=== PATIENT | female | born 1975 | race African-American/Black ===

== ENCOUNTER 2016-07-21 19:20 | Inpatient (IN) | payer OTHER ==
[~2016-07-21 19:20] MED LIST: NEOSTIGMINE 3 MG/3 ML SYR IV ONE; NORMOSOL R INJ 2,000 ML IV ONE; ONDANSETRON HCL 4 MG/2 ML VIAL IV PUSH ONE; PHENYLEPH/NS 1000 MCG/10 ML SYR IV ONE; PROPOFOL 200 MG/20 ML AMP IV ONE; SODIUM CHLORID 0.9% 500 ML INJ 500 ML IV ONE; TRAM50 PO; Z.0.NO CURRENT MEDS; ePHEDrine/NS 25 MG/5 ML SYR IV ONE
[2016-07-21 19:25] VITALS: O2SAT 100
[2016-07-21] MEDS ORDERED: MORPHINE SULFATE 8 MG/ML INJ ONE (19:26)
[2016-07-21] MEDS ORDERED: ONDANSETRON HCL 4 MG/2 ML VIAL ONE (19:26)
[2016-07-21] MEDS ORDERED: IOHEXOL 350 MG/ML 10 ML VIAL (for RAD DIAG) IV ONE (19:38)
[2016-07-21] MEDS ORDERED: SOD PHOSPHATE/SOD BIPHOSPHATE (ADULT) ENEMA 133ML PR ONE (19:45)
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
[2016-07-21] MEDS ORDERED: ceFAZolin INJ 1,000 MG VIAL IV ONE (20:13)
[2016-07-21 20:21] LABS: BICARBONATE 23.6 MEQ/L (21.0-32.0); POTASSIUM 3.7 MEQ/L (3.5-5.1)
[2016-07-21 20:26] LABS: PROTHROMBIN TIME - PATIENT 10.9 SEC (9.8-11.6)
[2016-07-21 20:31] LABS: APTT (PATIENT) 20.1 SEC (24.3-30.1)
[2016-07-21 20:39] LABS: AUTOMATED NEUTROPHIL # 16.6 TH/MM3 (1.8-7.7); BASOPHIL % 0.2 % (0.0-2.0); EOSINOPHIL % 0.1 % (0.0-4.0); HEMATOCRIT 28.1 % (35.0-46.0); HEMO FLAGS DIFF FINAL; LYMPHOCYTE # 0.6 TH/MM3 (1.0-4.8); MEAN CELL VOLUME 83.2 FL (80.0-100.0); MEAN CORPUSCULAR HEMOGLOBIN 29.6 PG (27.0-34.0); MEAN CORPUSCULAR HGB CONC 35.5 % (32.0-36.0); MONO % 5.5 % (0.0-8.0); NEUT % 91.2 % (16.0-70.0); PLATELET COUNT 253 TH/MM3 (150-450); RED BLOOD COUNT 3.37 MIL/MM3 (4.00-5.30); RED CELL DISTRIBUTION WIDTH 13.6 % (11.6-17.2); WHITE BLOOD COUNT 18.3 TH/MM3 (4.0-11.0)
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
[2016-07-21 20:56] LABS: APTT (PATIENT) 27.1 SEC (24.3-30.1); INTERNATIONAL NORMALIZED RATIO 1.1 RATIO; PROTHROMBIN TIME - PATIENT 11.7 SEC (9.8-11.6)
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
[2016-07-21 21:00] LABS: BLOOD GAS BASE EXCESS -3.4 mmol/L (-2-2); BLOOD GAS CARBOXYHEMOGLOBIN 1.5 % (0-4); BLOOD GAS HCO3 21 mmol/L (22-26); BLOOD GAS METHEMOGLOBIN 0.9 % (0-2); BLOOD GAS O2 HGB SATURATION 98 % (90-100); BLOOD GAS OXYGEN CONTENT 20.9 Vol % (12.0-20.0); BLOOD GAS PCO2 36 mmHg (38-42); BLOOD GAS PO2 261 mmHg (61-120); BLOOD GAS TOTAL HGB 14.8 G/DL (12.0-16.0); CRITICAL VALUE NO; OXYGEN DEVICE VENTILATOR; TEMP CORR TO 98.6
[2016-07-21 21:01] LABS: DRAW SITE ART LINE; FIO2 70 %; STAT YES; VENT SETTINGS PER ANESTHESIA
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
[2016-07-21 21:05] LABS: CALCIUM-PROTEIN CORRECTED 7.5 MG/DL (8.5-10.1)
[2016-07-21 21:06] LABS: BICARBONATE 24.5 MEQ/L (21.0-32.0); POTASSIUM 3.5 MEQ/L (3.5-5.1); TOTAL BILIRUBIN ADULT 0.5 MG/DL (0.2-1.0)
[2016-07-21 21:14] LABS: CALCIUM-PROTEIN CORRECTED 7.3 MG/DL (8.5-10.1)
[2016-07-21] MEDS ORDERED: DO NOT ADM ANY ANTICOAGULANT DRUGS XX PRN (21:30)
[2016-07-21] MEDS ORDERED: fentaNYL CITRATE 250 MCG/5 ML AMP ONE (21:36)
[2016-07-21] MEDS: LACTATED RINGER'S 1000 ML INJ 1,000 ML IV SCH (22:05)
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
[2016-07-21] MEDS ORDERED: MISCELLANEOUS NURSING INFORMATION XX SCH (22:15)
[2016-07-21] MEDS ORDERED: HYDROmorphone HCL PF 1 MG/ML VIAL IVP PRN (22:15)
[2016-07-21] MEDS ORDERED: MAGNESIUM HYDROXIDE SUSP 30 ML CUP PO PRN (22:15)
[2016-07-21] MEDS ORDERED: CHLORHEXIDINE GLUCONATE 2 % 1 PACK (2 CLOTHS) TOP PRN (22:15)
[2016-07-21] MEDS ORDERED: *morphine SULFATE 8 MG/ML PERIprocedure ONLY ONE (22:18)
[2016-07-21 23:53] VITALS: BP 135/76; PULSE 89; RESP 18; TEMP 96.8; O2SAT 98
[2016-07-22] MEDS: ONDANSETRON HCL 4 MG/2 ML VIAL IV PRN (01:24)
[2016-07-22] MEDS: CHLORHEXIDINE GLUCONATE 2 % 1 PACK (2 CLOTHS) TOP SCH ×2 (04:00→20:23)
[2016-07-22] MEDS: LACTATED RINGER'S 1000 ML INJ 1,000 ML IV SCH ×3 (04:26→20:23)
[2016-07-22 06:11] LABS: BICARBONATE 24.2 MEQ/L (21.0-32.0); CALCIUM-PROTEIN CORRECTED 7.5 MG/DL (8.5-10.1); POTASSIUM 4.3 MEQ/L (3.5-5.1); TOTAL BILIRUBIN ADULT 0.9 MG/DL (0.2-1.0)
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
[2016-07-22 08:00] VITALS: BP 132/82; PULSE 90; RESP 18; TEMP 97.4; O2SAT 98
[2016-07-22 08:31] LABS: AUTOMATED NEUTROPHIL # 14.8 TH/MM3 (1.8-7.7); BASOPHIL % 0.1 % (0.0-2.0); HEMATOCRIT 31.4 % (35.0-46.0); HEMO FLAGS DIFF FINAL; LYMPH % 2.3 % (9.0-44.0); LYMPHOCYTE # 0.4 TH/MM3 (1.0-4.8); MEAN CELL VOLUME 84.3 FL (80.0-100.0); MEAN CORPUSCULAR HGB CONC 34.3 % (32.0-36.0); MONO % 4.7 % (0.0-8.0); NEUT % 92.9 % (16.0-70.0); PLATELET COUNT 276 TH/MM3 (150-450); RED BLOOD COUNT 3.73 MIL/MM3 (4.00-5.30); RED CELL DISTRIBUTION WIDTH 13.5 % (11.6-17.2); WHITE BLOOD COUNT 15.9 TH/MM3 (4.0-11.0)
[2016-07-22] MEDS: DOCUSATE SODIUM 100 MG CAP PO SCH ×2 (08:32→20:21)
[2016-07-22] MEDS: BACITRACIN TOP OINT 15 GM TUBE TOP SCH ×2 (08:32→20:22)
[2016-07-22] MEDS: ACETAMINOPHEN 1000 MG/100 ML VIAL IV SCH ×3 (09:22→20:22)
[2016-07-22 10:25] VITALS: O2SAT 98
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
[2016-07-22 12:00] VITALS: BP 165/94; PULSE 87; RESP 20; TEMP 98; O2SAT 100
[2016-07-22 16:00] VITALS: BP 139/86; PULSE 76; RESP 20; TEMP 97.6; O2SAT 99
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
[2016-07-22 20:00] VITALS: BP 136/83; PULSE 91; RESP 16; TEMP 99; O2SAT 100
[2016-07-22] MEDS: FAMOTIDINE 20 MG TAB PO SCH (20:21)
[2016-07-23] VITALS: BP 131/82; PULSE 90; RESP 16; TEMP 98.2; O2SAT 98
[2016-07-23] MEDS: ACETAMINOPHEN 1000 MG/100 ML VIAL IV SCH (02:05)
[2016-07-23] MEDS: ONDANSETRON HCL 4 MG/2 ML VIAL IV PRN (04:40)
[2016-07-23] MEDS: LACTATED RINGER'S 1000 ML INJ 1,000 ML IV SCH ×2 (06:11→13:34)
[2016-07-23] MEDS ORDERED: WALKER WHEELS/F1 MIS (07:10)
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
[2016-07-23 08:00] VITALS: BP 141/93; PULSE 96; RESP 20; TEMP 98.3; O2SAT 97
[2016-07-23] MEDS: DOCUSATE SODIUM 100 MG CAP PO SCH ×2 (08:26→21:00)
[2016-07-23] MEDS: BACITRACIN TOP OINT 15 GM TUBE TOP SCH ×2 (08:27→21:21)
[2016-07-23 09:48] VITALS: O2SAT 95
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
[2016-07-23 12:00] VITALS: BP 149/89; PULSE 88; RESP 18; TEMP 99.1; O2SAT 97
[2016-07-23] MEDS: KETOROLAC TROMETHAMINE 30 MG/ML (IVP) VIAL IV PUSH PRN ×2 (13:33→21:17)
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
[2016-07-23 16:00] VITALS: BP 149/92; PULSE 85; RESP 20; TEMP 98.1; O2SAT 98
[2016-07-23 20:00] VITALS: BP 143/85; PULSE 83; RESP 16; TEMP 99.1; O2SAT 99
[2016-07-23] MEDS: FAMOTIDINE 20 MG TAB PO SCH (21:18)
[2016-07-24] VITALS: BP 156/93; PULSE 96; RESP 18; TEMP 98.9; O2SAT 96
[2016-07-24] MEDS: LACTATED RINGER'S 1000 ML INJ 1,000 ML IV SCH ×3 (00:49→20:00)
[2016-07-24] MEDS: CHLORHEXIDINE GLUCONATE 2 % 1 PACK (2 CLOTHS) TOP SCH ×2 (00:49→20:00)
[2016-07-24] MEDS: KETOROLAC TROMETHAMINE 30 MG/ML (IVP) VIAL IV PUSH PRN ×3 (06:21→19:56)
[2016-07-24 08:00] VITALS: BP 140/99; PULSE 96; RESP 20; TEMP 98; O2SAT 97
[2016-07-24] MEDS ORDERED: LACTULOSE SYRUP 20 GM/30 ML CUP PO ONE (09:00)
[2016-07-24] MEDS: DOCUSATE SODIUM 50 MG/SENNA 8.6 MG TAB PO SCH ×2 (09:45→20:00)
[2016-07-24] MEDS: BACITRACIN TOP OINT 15 GM TUBE TOP SCH (09:46)
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
[2016-07-24] MEDS ORDERED: NORC5TAB PO (11:06)
[2016-07-24 12:00] VITALS: BP 150/104; PULSE 83; RESP 20; TEMP 97.2; O2SAT 98
[2016-07-24] MEDS ORDERED: KETO10 PO (12:40)
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
[2016-07-24 16:00] VITALS: BP 158/100; PULSE 74; RESP 23; TEMP 98.3; O2SAT 99
[2016-07-24] MEDS: FAMOTIDINE 20 MG TAB PO SCH (19:56)
[2016-07-24] MEDS: SODIUM CHLORIDE 0.9% FLUSH 5 ML FLUSH IVF PRN (19:56)
[2016-07-24 20:04] VITALS: BP 150/91; PULSE 88; RESP 18; TEMP 98.9; O2SAT 98
[2016-07-25 00:02] VITALS: BP 143/88; PULSE 82; RESP 18; TEMP 98.4; O2SAT 98
[2016-07-25] MEDS: SODIUM CHLORIDE 0.9% FLUSH 5 ML FLUSH IVF PRN (04:58)
[2016-07-25] MEDS: KETOROLAC TROMETHAMINE 30 MG/ML (IVP) VIAL IV PUSH PRN (04:59)
[2016-07-25] MEDS: LACTATED RINGER'S 1000 ML INJ 1,000 ML IV SCH (06:28)
[2016-07-25 08:00] VITALS: BP 152/103; PULSE 81; RESP 16; TEMP 97.8; O2SAT 95
[2016-07-25] MEDS: DOCUSATE SODIUM 50 MG/SENNA 8.6 MG TAB PO SCH (08:49)
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
== END 2016-07-25 11:03 | disposition home or self-care (01) | DRG 958 ==
LOC: NEPI 19:20 → NEDA 19:41 → OBSVTOIN 22:17 → MERGE 22:17 → EDBD 22:17 → N07A 22:52
PROVIDERS: ADMIT Surgery; ATTEND Surgery
PROC: 0HD7XZZ Extraction of Abdomen Skin, External Approach (ICD-10-PCS; 2016-07-21)
PROC: 0HQ7XZZ Repair Abdomen Skin, External Approach (ICD-10-PCS; 2016-07-21)
PROC: 0JC80ZZ Extirpation of Matter from Abdomen Subcutaneous Tissue and Fascia, Open Approach (ICD-10-PCS; 2016-07-21)
PROC: 3E1M38Z Irrigation of Peritoneal Cavity using Irrigating Substance, Percutaneous Approach (ICD-10-PCS; 2016-07-21)
PROC: 0FQ10ZZ Repair Right Lobe Liver, Open Approach (ICD-10-PCS; principal; 2016-07-21 19:55)
PROC: 0JQD3ZZ Repair Right Upper Arm Subcutaneous Tissue and Fascia, Percutaneous Approach (ICD-10-PCS; 2016-07-21 19:55)
DX: S36.113A Laceration of liver, unspecified degree, initial encounter (principal); S27.2XXA Traumatic hemopneumothorax, initial encounter; S21.139A Puncture wound without foreign body of unspecified front wall of thorax without penetration into thoracic cavity, initial encounter; S31.640A Puncture wound with foreign body of abdominal wall, right upper quadrant with penetration into peritoneal cavity, initial encounter; S21.93XA Puncture wound without foreign body of unspecified part of thorax, initial encounter; F43.21 Adjustment disorder with depressed mood; F43.0 Acute stress reaction; J45.909 Unspecified asthma, uncomplicated; X95.9XXA Assault by unspecified firearm discharge, initial encounter; Y93.9 Activity, unspecified; Y92.9 Unspecified place or not applicable
CPT/HCPCS: 71010; 71260; 74177; 80048; 80053; 82805; 84155; 85025; 85610; 85730; 86850; 86900; 86901; 94150; 96374; 96375; 99291; G0390; J0131; J0690; J1885; J2270; J2370; J2405; J2710; J3010; J7040; J7120; Q9967